=== PATIENT | female | born 1990 | race Two or more races ===

== ENCOUNTER 2024-06-29 03:56 | Inpatient (IN) | payer OTHER ==
[~2024-06-29] VITALS: Ht 157.5 cm; Wt 2.7 kg
[2024-06-29] MEDS ORDERED: CEFAZOLIN SODIUM 1,000 MG VIAL IV SCH ×2 (04:15→12:00)
[2024-06-29 04:23] VITALS: BP 106/6
[2024-06-29] MEDS ORDERED: FOLIC ACID20 MG PO (04:39)
[2024-06-29] MEDS ORDERED: NIFEDIPINE20 MG PO (04:39)
[2024-06-29] MEDS ORDERED: PRENATABS RX T1 EACH PO (04:39)
[2024-06-29] MEDS ORDERED: INTEGRA PLUS C1 EACH PO (04:40)
[2024-06-29 06:34] VITALS: BP 93/63; O2SAT 97
[2024-06-29] MEDS ORDERED: ERYTHROMYCIN BASE OPHT 1GM EACH TUBE OP ONE ×2 (07:25→16:45)
[2024-06-29] MEDS ORDERED: OXYTOCIN 10 UNITS/ML VIAL ONE (07:26)
[2024-06-29] MEDS ORDERED: CARBOPROST TROMETHAMINE 250 MCG/ML AMPUL IM ONE ×2 (07:27→16:45)
[2024-06-29] MEDS ORDERED: MORPHINE SULFATE 4 MG/ML VIAL IV ONE ×2 (11:40→12:10)
[2024-06-29] MEDS ORDERED: PROMETHAZINE HCL 25 MG/ML AMPUL IV SCH (12:00)
[2024-06-29] MEDS ORDERED: MEPERIDINE HCL/PF 25 MG/ML VIAL IM SCH (12:00)
[2024-06-29] MEDS ORDERED: CEFAZOLIN SODIUM 1,000 MG VIAL ONE (12:16)
[2024-06-29 14:00] VITALS: BP 109/64
[2024-06-29] MEDS ORDERED: OXYTOCIN 10 UNITS/ML VIAL IV ONE (16:45)
[2024-06-29 18:06] VITALS: BP 104/67
[2024-06-30] VITALS: BP 111/72
[2024-06-30 07:44] VITALS: BP 115/60
[2024-06-30 08:11] LABS: HEMATOCRIT 29.6 % (36.0-45.00); MEAN CELL VOLUME 79.1 fL (80.00-100.00); MEAN CORPUSCULAR HEMOGLOBIN 26.6 pg (27.00-32.0); MEAN CORPUSCULAR HGB CONC 33.6 g/dl (32.0-36.0); PLATELET COUNT 313 K/uL (150-450); RED BLOOD COUNT 3.75 M/uL (4.00-6.00); RED CELL DISTRIBUTION WIDTH 16.8 % (11.5-14.5)
[2024-06-30] MEDS ORDERED: OxyCODONE HCL/APAP UD (PERCOCET) PO PRN (08:30)
[2024-06-30 12:24] VITALS: BP 111/78
[2024-06-30 14:37] VITALS: BP 127/80
[2024-07-01 01:00] VITALS: BP 132/60
[2024-07-01 11:29] VITALS: BP 124/86
== END 2024-07-01 14:43 | disposition home or self-care (01) | DRG 788 ==
LOC: OB/GYN 03:56 → LDR 03:56 → O/R 08:17 → OB/GYN 11:17
PROVIDERS: ADMIT Specialist; ATTEND Specialist
PROC: 4A1HXCZ Monitoring of Products of Conception, Cardiac Rate, External Approach (ICD-10-PCS; 2024-06-29)
PROC: 10D00Z1 Extraction of Products of Conception, Low, Open Approach (ICD-10-PCS; principal; 2024-06-29 09:15)
DX: O32.2XX0 Maternal care for transverse and oblique lie, not applicable or unspecified (principal); O69.0XX0 Labor and delivery complicated by prolapse of cord, not applicable or unspecified; Z3A.37 37 weeks gestation of pregnancy; Z37.0 Single live birth; Z20.822 Contact with and (suspected) exposure to COVID-19